=== PATIENT | male | born 1965 | race Two or more races ===

== ENCOUNTER → 2020-04-11 | Outpatient (CLI) | payer OTHER ==
[2020-04-12 07:17] LABS: BASOPHIL % 0.6 % (0.2-1.5); PLATELET COUNT 234 x10^3mcL (152-348); RED CELL DISTRIBUTION WIDTH 13.3 % (12.1-16.2)
[2020-04-12 07:47] LABS: ALBUMIN 3.9 g/dL (3.4-5.0); AST/SGOT 16 U/L (15-37); CALCIUM 9.5 mg/dL (8.5-10.1); CARBON DIOXIDE 33.3 mmol/L (21-32); CHLORIDE SERUM 104 mmol/L (98-107); CREATININE SERUM 1.2 mg/dL (0.7-1.3); GFR1 > 60 mL/min; GLUCOSE SERUM 87 mg/dL (74-106); POTASSIUM SERUM 4.2 mmol/L (3.5-5.1); SODIUM SERUM 143 mmol/L (136-145)
[2020-04-12 08:08] LABS: ALKALINE PHOSPHATASE 50 U/L (46-116); ALT/SGPT 37 U/L (16-63); BILIRUBIN TOTAL 0.8 mg/dL (0.20-1.00); CHOLESTEROL 182 mg/dL (<200); CHOLESTEROL/HDL RATIO 4.6; FREE T4 1.14 ng/dL (0.76-1.46); HDL CHOLESTEROL 40 mg/dL (40-60); TOTAL PROTEIN, SERUM 7.2 g/dL (6.4-8.2); TRIGLYCERIDES 100 mg/dL (<150)
== END | disposition home or self-care (01) ==
LOC: LB 16:39
DX: Z00.00 Encounter for general adult medical examination without abnormal findings (principal); Z12.11 Encounter for screening for malignant neoplasm of colon; Z12.5 Encounter for screening for malignant neoplasm of prostate
CPT/HCPCS: 84153; 84439

== ENCOUNTER 2020-04-17 15:59 | Emergency (ER) | payer OTHER ==
[~2020-04-17] VITALS: Ht 190.5 cm; Wt 98.0 kg
[2020-04-17 16:10] VITALS: Ht 190.5 cm; Wt 98.0 kg
[2020-04-17] MEDS ORDERED: IBU600 M2 PO (17:37)
[2020-04-17 17:46] VITALS: BP 132/48
== END 2020-04-17 17:46 | disposition home or self-care (01) ==
LOC: ED 15:59
DX: S61.217A Laceration without foreign body of left little finger without damage to nail, initial encounter (principal); W26.8XXA Contact with other sharp object(s), not elsewhere classified, initial encounter; Y92.89 Other specified places as the place of occurrence of the external cause; Y93.89 Activity, other specified; Y99.8 Other external cause status
CPT/HCPCS: 90715; A4570

== ENCOUNTER → 2020-04-29 | Outpatient (CLI) | payer OTHER ==
[~2020-04-29] MED LIST: IBU600 M2 PO
== END | disposition home or self-care (01) ==
LOC: LB 11:03
DX: D58.2 Other hemoglobinopathies (principal)